=== PATIENT | female | born 1935 | race African-American/Black ===

== ENCOUNTER 2017-03-09 14:54 | Emergency (ER) | payer MEDICARE ==
[~2017-03-09] VITALS: Ht 162.6 cm; Wt 75.0 kg
[2017-03-09] MEDS ORDERED: VALS40TA4 PO (15:05)
[2017-03-09] MEDS ORDERED: HYDR-4133 PO (15:05)
[2017-03-09] MEDS ORDERED: ATOR10TA PO (15:05)
[2017-03-09] MEDS ORDERED: METF500T4 PO (15:05)
[2017-03-09] MEDS ORDERED: AMLO2.5T45 PO (15:05)
[2017-03-09 15:28] VITALS: BP 99/75
[2017-03-09 15:50] LABS: BASOPHILS % 0.5 % (0.0-2.0); EOSINOPHILS % 0.5 % (0.0-5.0); HEMATOCRIT. 34.3 % (36.0-48.0); HEMOGLOBIN. 11.4 g/dL (12.0-16.0); LYMPHOCYTES % 14.2 % (20.0-50.0); MEAN CORPUSCULAR HEMOGLOBIN 28.8 pg (28.0-32.0); MEAN CORPUSCULAR VOLUME 86.9 fL (81.0-99.0); MEAN PLATELET VOLUME 9.8 fl (7.4-10.4); MONOCYTES % 5.6 % (2.0-8.0); NEUTROPHILS % 79.2 % (40.0-76.0); PLATELET 239 x1000/uL (130-400); RED BLOOD CELL COUNT 3.95 mill/uL (4.2-5.4); RED CELL DISTRIBUTION WIDTH 14.2 % (11.6-14.6)
[2017-03-09 15:52] LABS: CHLORIDE 105 mEq/L (98-107)
[2017-03-09 15:55] LABS: CARBON DIOXIDE 26 mEq/L (21-32)
[2017-03-09 16:01] LABS: TROPONIN I < 0.02 ng/mL (0.00-0.04)
[2017-03-09] MEDS ORDERED: SODIUM CHLORIDE 0.9% 1,000 ML IV ONE (16:11)
[2017-03-09 17:18] LABS: CLARITY URINE CLEAR (CLEAR); COLOR URINE YELLOW (YELLOW); GLUCOSE URINE 2+ (NEGATIVE); KETONES URINE NEGATIVE (NEGATIVE); LEUKOCYTE ESTERASE URINE NEGATIVE (NEGATIVE); NITRITE URINE NEGATIVE (NEGATIVE); OCCULT BLOOD URINE NEGATIVE (NEGATIVE); PROTEIN URINE NEGATIVE (NEGATIVE); SPECIFIC GRAVITY URINE 1.016 (1.005-1.030); UROBILINOGEN URINE 0.2 E.U./dL (0.2-1.0)
== END 2017-03-09 17:43 | disposition home or self-care (01) ==
LOC: EDBD 14:54 → ER 15:27
DX: E11.649 Type 2 diabetes mellitus with hypoglycemia without coma (principal); E86.0 Dehydration; I10 Essential (primary) hypertension; Z85.3 Personal history of malignant neoplasm of breast; Z90.12 Acquired absence of left breast and nipple; Z79.84 Long term (current) use of oral hypoglycemic drugs; Z79.4 Long term (current) use of insulin
CPT/HCPCS: 36415; 80053; 81001; 82962; 84484; 85025; 93005; 99285; J7030